=== PATIENT | male | born 1950 | race Caucasian/White ===

== ENCOUNTER 2017-11-13 10:07 | Outpatient (CLI) | payer MEDICARE ==
[~2017-11-13] VITALS: Ht 182.9 cm; Wt 77.6 kg
[~2017-11-13 10:07] MED LIST: NAP375T CORPAK; PARO20TA53 PO; ZOC5T PO
[2017-11-13] MEDS ORDERED: albuterol 2.5 MG/3 ML nebule NEB ONE (11:00)
== END 2017-11-13 23:59 | disposition home or self-care (01) ==
LOC: RT 10:07
PROVIDERS: ATTEND Internal Medicine Pulmonary Disease
DX: J44.9 Chronic obstructive pulmonary disease, unspecified (principal); R06.09 Other forms of dyspnea; F17.200 Nicotine dependence, unspecified, uncomplicated
CPT/HCPCS: 85018; 94060; 94640; 94727; 94729; 94760